=== PATIENT | male | born 1940 | race Caucasian/White ===

== ENCOUNTER → 2020-04-07 09:15 | Outpatient (BNVA) | payer MEDICARE, SELFPAY | PROVIDERS: PCP Internal Medicine; Referring Provider Internal Medicine; Visit Provider Urology | DX: N40.1 Benign prostatic hyperplasia with lower urinary tract symptoms (principal); N13.8 Other obstructive and reflux uropathy; N52.01 Erectile dysfunction due to arterial insufficiency | CPT/HCPCS: 99212 ==

== ENCOUNTER → 2020-05-26 13:28 | Outpatient (BNVA) | payer MEDICARE, SELFPAY | PROVIDERS: PCP Internal Medicine; Visit Provider Urology | DX: N48.5 Ulcer of penis (principal) | CPT/HCPCS: 99212 ==

== ENCOUNTER → 2020-06-23 08:33 | Outpatient (BNVA) | payer MEDICARE, SELFPAY | PROVIDERS: PCP Internal Medicine; Visit Provider Urology | DX: N48.5 Ulcer of penis (principal) | CPT/HCPCS: 99212 ==

== ENCOUNTER 2020-06-23 09:44 | Outpatient (REF) | payer MEDICARE, SELFPAY | END 2020-06-23 09:45 | disposition home or self-care (01) | LOC: HO.LAB 09:44 | PROVIDERS: PCP Internal Medicine; Visit Provider Internal Medicine | DX: Z20.822 Contact with and (suspected) exposure to COVID-19 (principal) | CPT/HCPCS: 36415; C9803; U0003 ==

== ENCOUNTER 2021-01-06 10:45 | Outpatient (REF) | payer MEDICARE, SELFPAY ==
[2021-01-06 12:15] LABS: PSA,Total (Free>4and<10) 3.04 ng/mL (0.00-4.00)
== END 2021-01-06 10:46 | disposition home or self-care (01) ==
LOC: HO.LAB 10:45
PROVIDERS: PCP Internal Medicine; Visit Provider Urology
DX: Z12.5 Encounter for screening for malignant neoplasm of prostate (principal); N13.8 Other obstructive and reflux uropathy; N40.1 Benign prostatic hyperplasia with lower urinary tract symptoms
CPT/HCPCS: 36415; 84153

== ENCOUNTER → 2021-04-08 09:32 | Outpatient (BNVA) | payer MEDICARE, SELFPAY | PROVIDERS: PCP Internal Medicine; Visit Provider Urology | DX: N52.01 Erectile dysfunction due to arterial insufficiency (principal); N40.1 Benign prostatic hyperplasia with lower urinary tract symptoms; N13.8 Other obstructive and reflux uropathy | CPT/HCPCS: 99212 ==

== ENCOUNTER 2022-04-04 16:00 | Outpatient (REF) | payer MEDICARE, SELFPAY ==
[2022-04-04 18:06] LABS: Prostate Specific Antigen 3.19 ng/mL (<0.05-4.0)
== END 2022-04-04 16:01 | disposition home or self-care (01) ==
LOC: HO.LAB 16:00
PROVIDERS: PCP Internal Medicine; Visit Provider Urology
DX: Z12.5 Encounter for screening for malignant neoplasm of prostate (principal); N40.1 Benign prostatic hyperplasia with lower urinary tract symptoms; N13.8 Other obstructive and reflux uropathy
CPT/HCPCS: 36415; 84153

== ENCOUNTER → 2022-04-14 08:38 | Outpatient (BNVA) | payer MEDICARE, SELFPAY | PROVIDERS: PCP Internal Medicine; Visit Provider Urology | DX: N40.1 Benign prostatic hyperplasia with lower urinary tract symptoms (principal); N13.8 Other obstructive and reflux uropathy; N52.01 Erectile dysfunction due to arterial insufficiency | CPT/HCPCS: 99212 ==

== ENCOUNTER 2023-04-04 07:46 | Outpatient (REF) | payer MEDICARE, SELFPAY | END 2023-04-04 07:47 | disposition home or self-care (01) | LOC: HO.LAB 07:46 | PROVIDERS: PCP Internal Medicine; Visit Provider Urology | DX: Z12.5 Encounter for screening for malignant neoplasm of prostate (principal); N40.1 Benign prostatic hyperplasia with lower urinary tract symptoms; N13.8 Other obstructive and reflux uropathy | CPT/HCPCS: 36415; 84153 ==

== ENCOUNTER 2023-04-13 08:35 | Outpatient (AMB) | payer MEDICARE, SELFPAY ==
--- NOTE | 2023-04-13 08:37 | MHC.OFFVIS ---
Intake Intake Visit Reasons: 1YR PSA(set) Intake Note: Patient is Present for Follow Up Urology Medication: Sildenafil, Tadalafil Antibiotic Allergies: Erythromycin Blood Thinners: None Pharmacy: [facility] PVR: 282ml Allergies erythromycin base [ERYTHROMYCIN BASE] Allergy (Severe, Verified 04/13/23 08:40) NAUSEA codeine Allergy (Unknown, Verified 04/13/23 08:40) vomitting trimethobenzamide [From TIGAN] Allergy (Unknown, Verified 04/13/23 08:40) UNKNOWN Erythromycin Allergy (Mild, Uncoded 04/13/23 08:40) Unknown HPI HPI Comments History of Present Illness Details Gurmeet is a pleasant male. He is seen for the following urologic conditions - lower urinary tract symptoms - penile lesion - erectile dysfunction PSA rise to 4.1 Repeat in 4 months Lower Urinary Tract Symptoms: Continuing yearly follow-up Right renal cyst small Emptying bladder Does have occasional urge frequency Discussed going back on Flomax for at this stage would like to hold Regarding erectile dysfunction just received generic sildenafil Discussed possible generic tadalafil since has prostate relaxation component Current treatment includes medication - nothing. Prior treatments include procedure, TURP 11/23 - in office - US 01/24 with mild left renal cortex thinning. 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 Prostate Symptom Score Mild (0-8), Bother 2. Symptoms include - mild urge frequency Results from testing include cystoscopy Enlarged lateral lobes transrectal ultrasound Yes prostate size 30 Prior Prostate Score moderate. PSA 2012 3.6, 11/23 1.4, 08/25 3.2 09/27 1.5 PVR 160, 03/29 PVR 130, 12/29 3.0, 04/01 3.2, 04/02 4.1 Prostate volume 30-50gm. Treatment plan check 12m PVR, and PSA Review of Systems Const Denies chills and Denies fever(s) Card Reports no additional complaints and Denies syncope Resp Denies cough GI Denies abdominal pain and Denies heartburn Reports as per HPI and Denies change in libido Neuro Denies syncope Psych Denies change in libido Endo Denies change in libido Physical Exam Const General: cooperative, healthy appearing, comfortable and no acute distress Orientation/consciousness: patient oriented x3 HEENT Face and sinus: Yes normal facial exam Mouth: moist mucous membranes Neck Neck: Yes normal visual inspection, Yes full ROM and Yes trachea midline Chest Chest palpation & inspection: normal inspection of the chest Resp Effort & Inspection: normal respiratory effort, able to speak in complete sentences and no respiratory distress GI Inspection: Yes normal to inspection Back/Spine/Pelvis Cervical Spine: normal cervical lordosis Thoracic/Lumbar Spine: thoracic and lumbar spine normal to inspection Skin General skin exam: no rashes or lesions noted Neuro General: patient oriented x3, gait normal, tone normal and moves all extremities Extrem General: Yes normal to inspection and Yes capillary refill normal Office Procedures Post Void Residual Post Residual Void Post Void Residual (PVR): 282 [id number] Void Residual by ultrasound Results AMB Urinalysis, Automated UA Leukoctes 0 Valencia/uL Last Edit by LENA Bush on 04/13/23 08:45 UA Nitrite Negative Last Edit by Yissel Wade [facility] on 04/13/23 08:45 UA Urobilinogen 0.2 mg/dL Last Edit by Yissel Wade [facility] on 04/13/23 08:45 UA Protein 15 mg/dL Last Edit by Yissel Wade [facility] on 04/13/23 08:45 UA pH 5.5 Last Edit by Yissel Wade [facility] on 04/13/23 08:45 UA Blood 0 Gabriel/uL Last Edit by Yissel Wade [facility] on 04/13/23 08:45 UA Specific [place] 1.030 Last Edit by Yissel Wade [facility] on 04/13/23 08:45 UA Ketone Negative Last Edit by LENA Bush on 04/13/23 08:45 UA Bilirubin 0 mg/dL Last Edit by Yissel Wade [facility] on 04/13/23 08:45 UA Glucose 0 mg/dL Last Edit by Yissel Wade [facility] on 04/13/23 08:45 Results Reviewed Results Reviewed: Laboratory Last Values Urine pH (Auto) 5.5 04/13/23 08:40 Specific [place] (Auto) 1.030 04/13/23 08:40 Urine Protein (Auto) 15 mg/dL 04/13/23 08:40 Glucose (UA)(Auto) 0 mg/dL 04/13/23 08:40 Urine Ketones (Auto) Negative 04/13/23 08:40 Urine Blood (Auto) 0 Gabriel/uL 04/13/23 08:40 Urine Nitrite (Auto) Negative 04/13/23 08:40 Urine Bilirubin (Auto) 0 mg/dL 04/13/23 08:40 Urine Urobilinogen (Auto) 0.2 mg/dL 04/13/23 08:40 Leukocyte Esterase (Auto) 0 Valencia/uL 04/13/23 08:40 Assessment & Plan Assessment & Plan (1) Elevated PSA: Code(s): R97.20 - Elevated prostate specific antigen [PSA] Plan Four month follow-up PSA Orders: Orders AMB Urinalysis Automated Today Z13.9 - Encounter for screening, unspecified AMB Post Void Residual by ultrasound Today N13.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, N40.1 - Benign prostatic hyperplasia with lower urinary tract symptoms Patient Instructions: Imaging studies, laboratory and physical exam results were discussed and reviewed in detail. No major barriers to patient understanding were identified. An opportunity to ask questions regarding the treatment plan was provided. All questions were answered. The patient expressed understanding and agreement with the above treatment plan. The patient is aware they should contact our office by phone for worsening of their current condition or the appearance of new urologic symptoms. Compliance is encouraged with any medications and followup testing that is ordered. It is a privilege to participate in the urologic care of your patient. If you have any questions or concerns regarding treatment for the above conditions, or other urologic issues, please do not hesitate to contact me. The office telephone contact is [phone]. This note is constructed using voice recognition software. While every effort has been made to ensure accuracy radiation safety officer errors may have been included. Yours sincerely, Dr Henry Pavon MD, STEFANO [facility] - Urology Providers of Expert, Compassionate Care for the Genitourinary System Coding Level of Care Code Est Pt Level 3 (84847) Diagnoses Elevated PSA R97.20 CPT Codes Post Residual Void - PVR CPT Code: 20134-Kbte Void Residual by ultrasound ([id number])
== END 2023-04-13 09:14 | disposition home or self-care (01) ==
PROVIDERS: Visit Provider Urology
DX: R97.20 Elevated prostate specific antigen [PSA] (principal); Z13.9 Encounter for screening, unspecified
CPT/HCPCS: 99213

== ENCOUNTER → 2023-04-13 08:35 | Outpatient (BNVA) | payer MEDICARE, SELFPAY | PROVIDERS: Visit Provider Urology | DX: R97.20 Elevated prostate specific antigen [PSA] (principal) | CPT/HCPCS: 51798; 81003; 99212 ==

== ENCOUNTER 2023-08-13 08:37 | Outpatient (REF) | payer MEDICARE, SELFPAY ==
[2023-08-13 10:26] LABS: Prostate Specific Antigen 5.42 ng/mL (<0.05-4.0)
== END 2023-08-13 08:38 | disposition home or self-care (01) ==
LOC: HO.LAB 08:37
PROVIDERS: PCP Internal Medicine; Visit Provider Urology
DX: Z12.5 Encounter for screening for malignant neoplasm of prostate (principal); R97.20 Elevated prostate specific antigen [PSA]
CPT/HCPCS: 36415; 84153

== ENCOUNTER 2023-08-16 08:16 | Outpatient (AMB) | payer MEDICARE, SELFPAY ==
--- NOTE | 2023-08-16 08:17 | A.OFFVIS_ITS ---
Intake Intake Visit Reasons: 4m/PSA(set)Confirmed Intake Note: Patient presents today for a telehealth follow-up Meds- Sildenafil, Tadalafil Allergies to Antibiotic- Erythromycin Blood Thinner- None Director Of Vendor Management Required: No Allergies erythromycin base [ERYTHROMYCIN BASE] Allergy (Severe, Verified 08/16/23 08:20) NAUSEA codeine Allergy (Unknown, Verified 08/16/23 08:20) vomitting trimethobenzamide [From TIGAN] Allergy (Unknown, Verified 08/16/23 08:20) UNKNOWN Erythromycin Allergy (Mild, Uncoded 08/16/23 08:20) Unknown Medication List - Last Reconciled 08/16/23 by Henry Pavon MD atorvastatin 20 mg PO DAILY carbamazepine 100 mg PO DAILY clotrimazole-betamethasone 1-0.05 % 1 appl topical BID 4 weeks doxycycline hyclate 100 mg PO BID 10 days finasteride 5 mg PO DAILY 90 days fluoxetine 20 mg PO DAILY loratadine 10 mg PO DAILY omeprazole 20 mg PO BID sildenafil 100 mg PO ONCE 30 days tadalafil 5 mg PO DAILY 90 days HPI HPI Comments History of Present Illness Details Gurmeet is a pleasant male. He is seen for the following urologic conditions - lower urinary tract symptoms - penile lesion - erectile dysfunction Telemedicine Evaluation 15 min Consultation Scrip-t Ibis Video attempted PSA slight rise to 5.4 Discussed options regarding elevating PSA. Has jumped over 2 points in last 18 months. Suggest trial of finasteride versus prostate biopsy. He has a lot going on with his son coming home who had a recent below-knee amputation and would rather try medications at this point. Six-month follow-up lab work Lower Urinary Tract Symptoms: Continuing yearly follow-up Right renal cyst small Emptying bladder Does have occasional urge frequency Discussed going back on Flomax for at this stage would like to hold Regarding erectile dysfunction just received generic sildenafil Discussed possible generic tadalafil since has prostate relaxation component Current treatment includes medication - nothing. Prior treatments include procedure, TURP 11/23 - in office - US 01/24 with mild left renal cortex thinning. 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 Prostate Symptom Score Mild (0-8), Bother 2. Symptoms include - mild urge frequency Results from testing include cystoscopy Enlarged lateral lobes transrectal ultrasound Yes prostate size 30 Prior Prostate Score moderate. PSA 2012 3.6, 11/23 1.4, 08/25 3.2, 09/27 1.5 PVR 160, 03/29 PVR 130, 12/29 3.0, 04/01 3.2, 04/02 4.1, 08/04 5.4 Review of Systems Const All systems reviewed & are unremarkable except as noted in HPI and below Reports no additional complaints Resp Reports no additional complaints GI Reports no additional complaints Reports as per HPI Musc Reports no additional complaints Physical Exam Telemedicine evaluation Appropriate responses Regular breathing rate and rhythm HEENT Head: Yes normal to inspection Ears: hearing grossly normal bilaterally Eyes General: appearance normal, both eyes and all related structures Neck Neck: Yes normal visual inspection Chest Chest palpation & inspection: normal inspection of the chest Resp Effort & Inspection: normal respiratory effort and able to speak in complete sentences Assessment & Plan Assessment & Plan (1) Elevated PSA: Code(s): R97.20 - Elevated prostate specific antigen [PSA] (2) BPH w urinary obs/LUTS: Code(s): N40.1 - Benign prostatic hyperplasia with lower urinary tract symptoms; N13.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 Plan Six-month follow-up Start finasteride Orders: Orders Prostate Specific Antigen 08/13/23 R97.20 - Elevated prostate specific antigen [PSA] PSA,Total (Free>4and<10) 6 Months R97.20 - Elevated prostate specific antigen [ PSA] Medications: New finasteride 5 mg PO DAILY 90 days 90 tabs 1RF N13.8 - Other obstructive and re flux uropathy, N40.1 - Benign prostatic hyperplasia with lower urinary tract symptoms, R33.9 - Retention of urine, unspecified, R97.20 - Elevated prostate specific antigen [PSA] Patient Instructions: Imaging studies, laboratory and physical exam results were discussed and reviewed in detail. No major barriers to patient understanding were identified. An opportunity to ask questions regarding the treatment plan was provided. All questions were answered. The patient expressed understanding and agreement with the above treatment plan. The patient is aware they should contact our office by phone for worsening of their current condition or the appearance of new urologic symptoms. Compliance is encouraged with any medications and followup testing that is ordered. It is a privilege to participate in the urologic care of your patient. If you have any questions or concerns regarding treatment for the above conditions, or other urologic issues, please do not hesitate to contact me. The office telephone contact is [phone]. This note is constructed using voice recognition software. While every effort has been made to ensure accuracy yarn examiner skeins errors may have been included. Yours sincerely, Dr Henry Pavon MD, [facility]EF[facility] - Urology Providers of Expert, Compassionate Care for the Genitourinary System Telehealth Telehealth Location of provider rendering services: practice address Location of patient: address on file Patient Identification confirmed using: Name, : Yes Telehealth method: video Patient verbally consented to treatment: Yes Patient verbally consented to billing insurance company: Yes Patient informed of any privacy concerns related to visit: Yes Coding Level of Care Code Tele Est Pt Level 4 (81066) Diagnoses Elevated PSA R97.20 BPH w urinary obs/LUTS N40.1; N13.8
== END 2023-08-16 09:27 | disposition home or self-care (01) ==
LOC: HO.HUSH 08:17
PROVIDERS: PCP Internal Medicine; Visit Provider Urology
DX: R97.20 Elevated prostate specific antigen [PSA] (principal); N40.1 Benign prostatic hyperplasia with lower urinary tract symptoms; N13.8 Other obstructive and reflux uropathy
CPT/HCPCS: 99214

== ENCOUNTER → 2023-08-16 08:16 | Outpatient (BNVA) | payer MEDICARE, SELFPAY | PROVIDERS: PCP Internal Medicine; Visit Provider Urology ==

== ENCOUNTER 2024-02-18 11:09 | Outpatient (REF) | payer MEDICARE, SELFPAY ==
[2024-02-18 12:52] LABS: PSA,Total (Free>4and<10) 3.43 ng/mL (0.00-4.00)
== END 2024-02-18 11:10 | disposition home or self-care (01) ==
LOC: HO.LAB 11:09
PROVIDERS: PCP Internal Medicine; Visit Provider Urology
DX: R97.20 Elevated prostate specific antigen [PSA] (principal); Z12.5 Encounter for screening for malignant neoplasm of prostate
CPT/HCPCS: 36415; 84153

== ENCOUNTER 2024-04-02 08:58 | Outpatient (AMB) | payer MEDICARE, SELFPAY ==
--- NOTE | 2024-04-02 09:02 | MHC.OFFVIS ---
Intake Visit Reasons: PSA Results Intake Note: Patient is present for PSA/PVR Follow up Urology Med: Sildenafil, Tadalafil, Finasteride Antibiotic Allergy: Erythromycin base Blood Thinner: None Last PVR: 282ML(2022) Todays PVR: 20ml Radio Frequency Engineer Required: No Accompanied by: Self / Same As Patient Allergies erythromycin base [ERYTHROMYCIN BASE] Allergy (Severe, Verified 04/02/24 09:04) NAUSEA codeine Allergy (Unknown, Verified 04/02/24 09:04) vomitting trimethobenzamide [From TIGAN] Allergy (Unknown, Verified 04/02/24 09:04) UNKNOWN Erythromycin Allergy (Mild, Uncoded 04/02/24 09:04) Unknown HPI Comments Details: Gurmeet is a pleasant male. He is seen for the following urologic conditions - lower urinary tract symptoms - penile lesion - erectile dysfunction Appropriate PSA fall from 5.4 to 3.4 starting finasteride Cut back medication to Sunday, Sunday, Sunday Six-month follow-up repeat PSA Restart Cialis Lower Urinary Tract Symptoms: Continuing yearly follow-up Right renal cyst small Emptying bladder Does have occasional urge frequency Discussed going back on Flomax for at this stage would like to hold Regarding erectile dysfunction just received generic sildenafil Discussed possible generic tadalafil since has prostate relaxation component Current treatment includes medication - nothing. Prior treatments include procedure, TURP 11/23 - in office - US 01/24 with mild left renal cortex thinning. 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 Prostate Symptom Score Mild (0-8), Bother 2. Symptoms include - mild urge frequency Results from testing include cystoscopy Enlarged lateral lobes transrectal ultrasound Yes prostate size 30 Prior Prostate Score moderate. PSA 2012 3.6, 11/23 1.4, 08/25 3.2, 09/27 1.5 PVR 160, 03/29 PVR 130, 12/29 3.0, 04/01 3.2, 04/02 4.1, 08/04 5.4, 03/04 3.4 Review of Systems Const Denies chills and Denies fever(s) Card Reports no additional complaints and Denies syncope Resp Denies cough GI Denies abdominal pain and Denies heartburn Reports as per HPI and Denies change in libido Neuro Denies syncope Psych Denies change in libido Endo Denies change in libido Physical Exam Const General: cooperative, healthy appearing, comfortable and no acute distress Orientation/consciousness: patient oriented x3 HEENT Face and sinus: Yes normal facial exam Mouth: moist mucous membranes Neck Neck: Yes normal visual inspection, Yes full ROM and Yes trachea midline Chest Chest palpation & inspection: normal inspection of the chest Resp Effort & Inspection: normal respiratory effort, able to speak in complete sentences and no respiratory distress GI Inspection: Yes normal to inspection Back/Spine/Pelvis Cervical Spine: normal cervical lordosis Thoracic/Lumbar Spine: thoracic and lumbar spine normal to inspection Skin General skin exam: no rashes or lesions noted Neuro General: patient oriented x3, gait normal, tone normal and moves all extremities Extrem General: Yes normal to inspection and Yes capillary refill normal Office Procedures Post Void Residual Post Residual Void Post Void Residual (PVR): 20 [id number] Void Residual by ultrasound Assessment & Plan Assessment & Plan (1) Elevated PSA: Code(s): R97.20 - Elevated prostate specific antigen [PSA] Category: Medical (2) Erectile dysfunction due to arterial insufficiency: Code(s): N52.01 - Erectile dysfunction due to arterial insufficiency Category: Medical (3) BPH w urinary obs/LUTS: Code(s): N40.1 - Benign prostatic hyperplasia with lower urinary tract symptoms; N13.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 No major barriers to patient understanding were identified. An opportunity to ask questions regarding the treatment plan was provided. All questions were answered. The patient expressed understanding and agreement with the above treatment plan. The patient is aware they should contact our office by phone for worsening of their current condition or the appearance of new urologic symptoms. Compliance is encouraged with any medications and followup testing that is ordered. It is a privilege to participate in the urologic care of your patient. If you have any questions or concerns regarding treatment for the above conditions, or other urologic issues, please do not hesitate to contact me. The office telephone contact is [phone]. This note is constructed using voice recognition software. While every effort has been made to ensure accuracy bath mixer errors may have been included. Yours sincerely, Dr Henry Pavon MD, STEFAN[facility] - Urology Providers of Expert, Compassionate Care for the Genitourinary System Coding Level of Care Code Est Pt Level 4 (94762) Diagnoses Elevated PSA R97.20 Erectile dysfunction due to arterial insufficiency N52.01 BPH w urinary obs/LUTS N40.1; N13.8 CPT Codes Post Residual Void - PVR CPT Code: 09726-Mlvr Void Residual by ultrasound ([id number])
== END 2024-04-02 09:17 | disposition home or self-care (01) ==
PROVIDERS: PCP Internal Medicine; Visit Provider Urology
DX: R97.20 Elevated prostate specific antigen [PSA] (principal); N52.01 Erectile dysfunction due to arterial insufficiency; N40.1 Benign prostatic hyperplasia with lower urinary tract symptoms; N13.8 Other obstructive and reflux uropathy
CPT/HCPCS: 99214

== ENCOUNTER → 2024-04-02 08:58 | Outpatient (BNVA) | payer MEDICARE, SELFPAY | PROVIDERS: PCP Internal Medicine; Visit Provider Urology | DX: N40.1 Benign prostatic hyperplasia with lower urinary tract symptoms (principal); N13.8 Other obstructive and reflux uropathy; N52.01 Erectile dysfunction due to arterial insufficiency; R97.20 Elevated prostate specific antigen [PSA] | CPT/HCPCS: 51798; 99212 ==

== ENCOUNTER 2024-09-08 11:42 | Outpatient (REF) | payer MEDICARE, SELFPAY ==
[2024-09-08 13:23] LABS: Prostate Specific Antigen 4.66 ng/mL (<0.05-4.0)
== END 2024-09-08 11:43 | disposition home or self-care (01) ==
LOC: HO.LAB 11:42
PROVIDERS: PCP Internal Medicine; Visit Provider Urology
DX: R97.20 Elevated prostate specific antigen [PSA] (principal); Z12.5 Encounter for screening for malignant neoplasm of prostate
CPT/HCPCS: 36415; 84153

== ENCOUNTER 2024-10-01 09:24 | Outpatient (AMB) | payer MEDICARE, SELFPAY ==
--- NOTE | 2024-10-01 09:24 | A.OFFVIS_ITS ---
Intake Visit Reasons: 6m/PSA Intake Note: Patient is present for 6M/PSA Urology Medication:FINASTERIDE,SILDENAFIL Antibiotic Allergy:ERYTHROMYCIN Blood Thinner:NONE Medical Office Assistant Required: No Allergies erythromycin base [ERYTHROMYCIN BASE] Allergy (Severe, Verified 10/01/24 09:25) NAUSEA codeine Allergy (Unknown, Verified 10/01/24 09:25) vomitting trimethobenzamide [From TIGAN] Allergy (Unknown, Verified 10/01/24 09:25) UNKNOWN Erythromycin Allergy (Mild, Uncoded 10/01/24 09:25) Unknown HPI Comments Details: Gurmeet is a pleasant male. He is seen for the following urologic conditions - lower urinary tract symptoms - penile lesion - erectile dysfunction Telemedicine Evaluation 15 min Consultation Keelr Ibis Video Six-month follow-up PSA Finasteride Sunday, Sunday, Sunday Appropriate PSA fall from 5.4 to 3.4 starting finasteride With readjustment slight rise from 3.4 to 4.6 Repeat in six-month Has been on Cialis for ED plus lower urinary tract symptoms Lower Urinary Tract Symptoms: Continuing yearly follow-up Right renal cyst small Emptying bladder Does have occasional urge frequency Discussed going back on Flomax for at this stage would like to hold Regarding erectile dysfunction just received generic sildenafil Discussed possible generic tadalafil since has prostate relaxation component Current treatment includes medication - nothing. Prior treatments include procedure, TURP 11/23 - in office - US 01/24 with mild left renal cortex thinning. 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 Prostate Symptom Score Mild (0-8), Bother 2. Symptoms include - mild urge frequency Results from testing include cystoscopy Enlarged lateral lobes transrectal ultrasound Yes prostate size 30 Prior Prostate Score moderate. PSA 2012 3.6, 11/23 1.4, 08/25 3.2, 09/27 1.5 PVR 160, 03/29 PVR 130, 12/29 3.0, 04/01 3.2, 04/02 4.1, 08/04 5.4, 03/04 3.4, 10/03 4.6 Review of Systems Const All systems reviewed & are unremarkable except as noted in HPI and below Reports no additional complaints Resp Reports no additional complaints GI Reports no additional complaints Reports as per HPI Musc Reports no additional complaints Physical Exam Telemedicine evaluation Appropriate responses Regular breathing rate and rhythm HEENT Head: Yes normal to inspection Ears: hearing grossly normal bilaterally Eyes General: appearance normal, both eyes and all related structures Neck Neck: Yes normal visual inspection Chest Chest palpation & inspection: normal inspection of the chest Resp Effort & Inspection: normal respiratory effort and able to speak in complete sentences Telehealth Telehealth Telehealth Platform: [employer] Location of provider rendering services: practice address Location of patient: address on file Patient Identification confirmed using: Name, : Yes Telehealth method: video Patient verbally consented to treatment: Yes Patient verbally consented to billing insurance company: Yes Patient informed of any privacy concerns related to visit: Yes Minutes spent on Phone/Video with Pt.: 15 Assessment & Plan Assessment & Plan (1) BPH w urinary obs/LUTS: Code(s): N40.1 - Benign prostatic hyperplasia with lower urinary tract symptoms; N13.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 Category: Medical (2) Elevated PSA: Code(s): R97.20 - Elevated prostate specific antigen [PSA] Category: Medical (3) Erectile dysfunction due to arterial insufficiency: Code(s): N52.01 - Erectile dysfunction due to arterial insufficiency Category: Medical Plan Six-month follow-up PSA office Orders: Orders Prostate Specific Antigen 6 Months R97.20 - Elevated prostate specific antigen [PSA] Medications: Refilled tadalafil Daily medication - BIN [id number] [facility] DR33 5 mg PO DAILY 90 days 90 tabs 1RF sexual activity N52.01 - Erectile dysfunction due to arterial insufficiency Patient Instructions: This note is constructed using voice recognition software. While every effort has been made to ensure accuracy agricultural plow operator errors may have been included. Imaging studies, laboratory and physical exam results were discussed and reviewed in detail. No major barriers to patient understanding were identified. An opportunity to ask questions regarding the treatment plan was provided. All questions were answered. The patient expressed understanding and agreement with the above treatment plan. The patient is aware they should contact our office by phone for worsening of their current condition or the appearance of new urologic symptoms. Compliance is encouraged with any medications and followup testing that is ordered. It is a privilege to participate in the urologic care of your patient. If you have any questions or concerns regarding treatment for the above conditions, or other urologic issues, please do not hesitate to contact me. The office telephone contact is [phone]. Sincerely, Dr Henry Pavon MD, STEFANO [facility] - Urology Compassionate Specialist Care for the Genitourinary System Coding Level of Care Code Tele Est Pt Level 3 (29452) Complex EM visit Add On G2211 Diagnoses BPH w urinary obs/LUTS N40.1; N13.8 Elevated PSA R97.20 Erectile dysfunction due to arterial insufficiency N52.01
== END 2024-10-01 09:39 | disposition home or self-care (01) ==
LOC: HO.HUSH 09:24
PROVIDERS: PCP Internal Medicine; Visit Provider Urology
DX: N40.1 Benign prostatic hyperplasia with lower urinary tract symptoms (principal); N13.8 Other obstructive and reflux uropathy; R97.20 Elevated prostate specific antigen [PSA]; N52.01 Erectile dysfunction due to arterial insufficiency
CPT/HCPCS: 99213; G2211

== ENCOUNTER → 2024-10-01 09:24 | Outpatient (BNVA) | payer MEDICARE, SELFPAY | PROVIDERS: PCP Internal Medicine; Visit Provider Urology ==

== ENCOUNTER 2025-03-19 10:25 | Outpatient (REF) | payer MEDICARE, SELFPAY ==
[2025-03-19 14:23] LABS: Prostate Specific Antigen 6.23 ng/mL (<0.05-4.0)
== END 2025-03-19 10:26 | disposition home or self-care (01) ==
LOC: HO.10HDL 10:25
PROVIDERS: Visit Provider Urology
DX: Z12.5 Encounter for screening for malignant neoplasm of prostate (principal); R97.20 Elevated prostate specific antigen [PSA]
CPT/HCPCS: 36415; 84153

== ENCOUNTER 2025-04-02 08:49 | Outpatient (AMB) | payer MEDICARE, SELFPAY ==
--- NOTE | 2025-04-02 08:47 | MHC.OFFVIS ---
Intake Visit Reasons: 6m/PSA Intake Note: Patient is present for 6M/PSA Urology Medication:FINASTERIDE,SILDENAFIL,TADALAFIL Antibiotic Allergy:ERYTHROMYCIN Blood Thinner:NONE Labs ne 03/19/25 PSA 6.23 PVR:183 mls Vice Chair Required: No Accompanied by: Self / Same As Patient Allergies erythromycin base (ERYTHROMYCIN BASE) Allergy (Severe, Verified 04/02/25 08:51) NAUSEA codeine Allergy (Unknown, Verified 04/02/25 08:51) vomitting trimethobenzamide (From TIGAN) Allergy (Unknown, Verified 04/02/25 08:51) UNKNOWN Erythromycin Allergy (Mild, Uncoded 10/01/24 09:25) Unknown HPI Comments Details: Gurmeet is a pleasant male. He is seen for the following urologic conditions - lower urinary tract symptoms - penile lesion - erectile dysfunction Six-month follow-up PSA Finasteride Sunday, Sunday, Sunday Appropriate PSA fall from 5.4 to 3.4 starting finasteride With readjustment slight rise from 3.4 to 4.6 Slight rise in PSA 04/04 6.2 He will go back to daily finasteride Discussed potential MRI Has been on [employer] for ED plus lower urinary tract symptoms Lower Urinary Tract Symptoms: Continuing yearly follow-up Right renal cyst small Emptying bladder Does have occasional urge frequency Discussed going back on Flomax for at this stage would like to hold Regarding erectile dysfunction just received generic sildenafil Discussed possible generic tadalafil since has prostate relaxation component Current treatment includes medication - nothing. Prior treatments include procedure, TURP 11/23 - in office - US 01/24 with mild left renal cortex thinning. 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 Prostate Symptom Score Mild (0-8), Bother 2. Symptoms include - mild urge frequency Results from testing include cystoscopy Enlarged lateral lobes transrectal ultrasound Yes prostate size 30 Prior Prostate Score moderate. PSA 2012 3.6, 11/23 1.4, 08/25 3.2, 09/27 1.5 PVR 160, 03/29 PVR 130, 12/29 3.0, 04/01 3.2, 04/02 4.1, 08/04 5.4, 03/04 3.4, 10/03 4.6 Review of Systems Const Denies chills and Denies fever(s) Card Reports no additional complaints and Denies syncope Resp Denies cough GI Denies abdominal pain and Denies heartburn Reports as per HPI and Denies change in libido Neuro Denies syncope Psych Denies change in libido Endo Denies change in libido Physical Exam Const General: cooperative, healthy appearing, comfortable and no acute distress Orientation/consciousness: patient oriented x3 HEENT Face and sinus: Yes normal facial exam Mouth: moist mucous membranes Neck Neck: Yes normal visual inspection, Yes full ROM and Yes trachea midline Chest Chest palpation & inspection: normal inspection of the chest Resp Effort & Inspection: normal respiratory effort, able to speak in complete sentences and no respiratory distress GI Inspection: Yes normal to inspection Back/Spine/Pelvis Cervical Spine: normal cervical lordosis Thoracic/Lumbar Spine: thoracic and lumbar spine normal to inspection Skin General skin exam: no rashes or lesions noted Neuro General: patient oriented x3, gait normal, tone normal and moves all extremities Extrem General: Yes normal to inspection and Yes capillary refill normal Office Procedures Post Void Residual Post Residual Void Post Void Residual (PVR): 183 [id number] Void Residual by ultrasound Results AMB Urinalysis, Automated UA Leukoctes 0 Valencia/uL Last Edit by Pamela Govea [facility] on 04/02/25 08:53 UA Nitrite Negative Last Edit by Pamela Govea [facility] on 04/02/25 08:53 UA Urobilinogen 0.2 mg/dL Last Edit by Pamela Govea [facility] on 04/02/25 08:53 UA Protein 0 mg/dL Last Edit by Pamela Govea [facility] on 04/02/25 08:53 UA pH 6.0 Last Edit by Pamela Govea [facility] on 04/02/25 08:53 UA Blood 0 Gabriel/uL Last Edit by Pamela Govea [facility] on 04/02/25 08:53 UA Specific [place] 1.005 Last Edit by Pamela Govea [facility] on 04/02/25 08:53 UA Ketone Negative Last Edit by Pamela Govea [facility] on 04/02/25 08:53 UA Bilirubin 0 mg/dL Last Edit by Pamela Govea [facility] on 04/02/25 08:53 UA Glucose 0 mg/dL Last Edit by Pamela Govea [facility] on 04/02/25 08:53 AMB Urinalysis, Automated UA Leukoctes 0 Valencia/uL Last Edit by Pamela Colon, [facility] on 04/02/25 09:04 UA Nitrite Negative Last Edit by Pamela Colon, [facility] on 04/02/25 09:04 UA Urobilinogen 0.2 mg/dL Last Edit by Pamela Colon, [facility] on 04/02/25 09:04 UA Protein 15 mg/dL Last Edit by Pamela Colon, [facility] on 04/02/25 09:04 UA pH 6.0 Last Edit by Pamela Colon, [facility] on 04/02/25 09:04 UA Blood 0 Gabriel/uL Last Edit by Pamela Colon, [facility] on 04/02/25 09:04 UA Specific [place] 1.025 Last Edit by Pamela Colon, [facility] on 04/02/25 09:04 UA Ketone Negative Last Edit by Pamela Colon, [facility] on 04/02/25 09:04 UA Bilirubin 0 mg/dL Last Edit by Pamela Colon, [facility] on 04/02/25 09:04 UA Glucose 0 mg/dL Last Edit by Pamela Colon, [facility] on 04/02/25 09:04 Results Reviewed Results Reviewed: Laboratory Last Values Urine pH (Auto) 6.0 04/02/25 09:03 Specific [place] (Auto) 1.025 04/02/25 09:03 Urine Protein (Auto) 15 mg/dL 04/02/25 09:03 Glucose (UA)(Auto) 0 mg/dL 04/02/25 09:03 Urine Ketones (Auto) Negative 04/02/25 09:03 Urine Blood (Auto) 0 Gabriel/uL 04/02/25 09:03 Urine Nitrite (Auto) Negative 04/02/25 09:03 Urine Bilirubin (Auto) 0 mg/dL 04/02/25 09:03 Urine Urobilinogen (Auto) 0.2 mg/dL 04/02/25 09:03 Leukocyte Esterase (Auto) 0 Valencia/uL 04/02/25 09:03 Assessment & Plan Assessment & Plan (1) Elevated PSA: Code(s): R97.20 - Elevated prostate specific antigen [PSA] Category: Medical (2) BPH w urinary obs/LUTS: Code(s): N40.1 - Benign prostatic hyperplasia with lower urinary tract symptoms; N13.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 Category: Medical (3) Erectile dysfunction due to arterial insufficiency: Code(s): N52.01 - Erectile dysfunction due to arterial insufficiency Category: Medical Plan Six-month follow-up PSA Orders: Orders PSA,Total (Free>4and<10) 6 Months R97.20 - Elevated prostate specific antigen [PSA] Medications: Refilled finasteride 5 mg PO DAILY 90 tabs 1RF 90 days N13.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, N40.1 - Benign prostatic hyperplasia with lower urinary tract symptoms tadalafil Daily medication - BIN [id number] [facility] Group DR33 5 mg PO DAILY 90 tabs 1RF sexual activity 90 days N52.01 - Erectile dysfunction due to arterial insufficiency Patient Instructions: This note is constructed using voice recognition software. While every effort has been made to ensure accuracy drawing supervisor errors may have been included. Imaging studies, laboratory and physical exam results were discussed and reviewed in detail. No major barriers to patient understanding were identified. An opportunity to ask questions regarding the treatment plan was provided. All questions were answered. The patient expressed understanding and agreement with the above treatment plan. The patient is aware they should contact our office by phone for worsening of their current condition or the appearance of new urologic symptoms. Compliance is encouraged with any medications and followup testing that is ordered. It is a privilege to participate in the urologic care of your patient. If you have any questions or concerns regarding treatment for the above conditions, or other urologic issues, please do not hesitate to contact me. The office telephone contact is [phone]. Sincerely, Dr Henry Pavon MD, [facility] - Urology Compassionate Specialist Care for the Genitourinary System Coding Level of Care Code Est Pt Level 3 (43443) Complex EM visit Add On G2211 Diagnoses Elevated PSA R97.20 BPH w urinary obs/LUTS N40.1; N13.8 Erectile dysfunction due to arterial insufficiency N52.01 CPT Codes Post Residual Void - PVR CPT Code: 26808-[id number] Void Residual by ultrasound ([id number])
--- OUTSIDE RECORDS SUMMARY | 2025-04-02 09:34 | XMS_ITS | Clinical Summary ---
Author Organization [facility] [address] [facility] Address [address] [place] [address] Phone Care Team Providers Care Web Content Executive Name Role Phone Florentino Tao NP Primary Care Provider [phone] Allergies Active Allergy Reactions Criticality Noted Date Comments Codeine 11/20/2024 Erythromycin 04/22/2013 Medications atorvastatin (LIPITOR) 20 mg tablet Take 1 tablet (20 mg total) by mouth 1 (one) time each day. Active carBAMazepine (TEGretol) 200 mg tablet Take 0.5 tablets (100 mg total) by mouth 1 (one) time each day. Active finasteride (PROSCAR) 5 mg tablet take 1 tab by mouth daily for 90 days 5 Active FLUoxetine (PROzac) 40 mg capsule Take 1 capsule (40 mg total) by mouth 1 (one) time each day. 5 Active fluticasone propionate (FLONASE) 50 mcg/actuation nasal spray SPRAY 2 SPRAYS INTO EACH NOSTRIL TWICE A DAY FOR 5 DAYS, THEN DAILY DIRECTED FOR 90 DAYS Active sildenafiL (VIAGRA) 100 mg tablet TAKE 1 TABLET ORALLY ONCE FOR SEXUAL ACTIVITY. ADMINISTER 60 MINUTES BEFORE INTENDED ACTIVITY 5 Active tadalafiL (CIALIS) 5 mg tablet TAKE 1 TABLET BY MOUTH FOR SEXUAL ACTIVITY 5 Active omeprazole (PriLOSEC) [address] capsule Take 1 capsule (20 mg total) by mouth 2 (two) times a day. Do not crush or chew. 180 each 3 5 11/21/19 26 Active Active Problems Problem Noted Date Diagnosed Date Gastroesophageal reflux dise ase with esophagitis without hemorrhage 11/20/2024 Assessment & Plan (11/20/2024 5:16 PM EDT): Stable with omperazole 20 mg daily. 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 Martinez ESOPHAGOGASTRODUODENOSCOPY 07/12/2022 - 08/08/2022 grade A esophagitis, no bleeding, lg HH, ? Short segment Barretts with acute inflammation, negative for metaplasia ESOPHAGOGASTRODUODENOSCOPY 06/11/2021 - 07/11/2021 Grade D reflux esophagitis without bleeding, medium size hiatal hernia, focal Meneses's mucosa negative for dysplasia Dr. Martinez ESOPHAGOGASTRODUODENOSCOPY 08/09/2021 - 09/08/2021 Grade B reflux esophagitis, intestinal metaplasia negative for dysplasia Dr. Martinez COLONOSCOPY 06/11/2021 - 07/11/2021 2 medium sized angioectasias with stigmata of recent bleeding in the cecum treated with bipolar cautery, left-sided diverticulosis Dr. Martinez Medical History Medical History Date Comments Allergic rhinitis 04/22/2013 DX:Allergic rh initis Hyperlipidemia 04/22/2013 DX:Hyperlipidemi a Vasovagal syncope 04/22/2013 DX:Vasovagal s yncope Seizure disorder (CMS/HCC V2 4, CMS/HCC V28) 04/22/2013 DX:Seizure disorder (HCC); COMMENT: Neurologist: Dr Salgado BPH (benign prostatic hyperplasia) 04/22/2013 DX:BPH (benign prostatic hyperplasia); COMMENT: Biopsy, Dr Lozada for urology Elevated PSA 04/22/2013 DX:Elevated PSA; COMMENT: PSA was 10 in , repeat with decreased 6 after antibiotics. Family History Medical History Relation Name Comments Other: Myasthenia Gravis Brother 1 Valencia kemia Heart attack Father Other: Diverticulitis Mother a ge 89 yr Other: COPD Sister 1 Relation Name Status Comments Brother 1 Brother 2 Alive younger Father Mother Sister 1 Sister 2 Alive older Social History Tobacco Use Types Packs/Day Years Used Date Smoking Tobacco: Never Smokeless Tobacco: Never Alcohol Use Standard Drinks/Week Comments No 0 (1 standard drink = 0.6 oz pur e alcohol) Sex and Gender Information Value Date Recorded Sex Assigned at Not on file Legal Sex Male 6:26 AM EST Gender Identity Not on file Sexual Orientation Not on file Obstetrics History Last Filed Vital Signs Vital Sign Reading Time Taken Comments Blood Pressure - - Pulse - - Temperature - - Respiratory Rate - - Oxygen Saturation - - Inhaled Oxygen Concentration - - Weight 82.1 kg (181 lb) 11/20/2024 11:09 AM EDT Height 170.2 cm (5' 7 ) 11/20/2024 11:09 AM EDT Body Mass Index 28.35 11/20/2024 11:09 AM EDT Plan of Treatment Upcoming Encounters Date Type Department Care Team (Late st Contact Info) Description 11/20/2025 8:00 AM EDT Office Visit Gastroenterology - [address] [facility] [address] [place] [id number] Vidya Sheehan PA [facility] [place] [address] Health Maintenance Due Date Last Done Comments DTaP,Tdap,and Td Vaccines (1 - Tdap) 1961 Zoster Vaccines (1 of 2) 1992 Pneumococcal Vaccine: 50+ Years (2 of 2 - PCV) 08/14/2013 08/14/2012 RSV Immunization Adult Patients (1 - 1-dose 75+ series) 2017 Depression Screening 06/11/2024 Cholesterol Screening (Lipid Panel) 11/05/2024 Falls Risk Assessment 11/05/2024 Medicare Annual Wellness Visit 11/05/2024 Social Influencers of Health Screening 11/05/2024 COVID-19 Vaccine (3 - 2024-2 6 season) 2025 05/09/2022, 03/08/2021 Influenza Vaccine (#1) 2025 , 07/12/2019 HIB Vaccines Aged Out No longer eligi ble based on patient's age to complete this topic HPV Vaccines Aged Out No longer eligi ble based on patient's age to complete this topic Hepatitis A Vaccines Aged Out No long er eligible based on patient's age to complete this topic Hepatitis B Vaccines Aged Out No long er eligible based on patient's age to complete this topic IPV Vaccines Aged Out No longer eligi ble based on patient's age to complete this topic MMR Vaccines Aged Out No longer eligi ble based on patient's age to complete this topic Meningococcal ACWY Vaccine Aged Out N o longer eligible based on patient's age to complete this topic Meningococcal B Vaccine Aged Out No l onger eligible based on patient's age to complete this topic RSV Immunization Patients Under 20 months Aged Out No longer eligible b ased on patient's age to complete this topic Varicella Vaccines Aged Out No longer eligible based on patient's age to complete this topic Insurance [facility] MEDICARE Care Teams Web Content Executive Relationship Specialty Start Date End Date Florentino Tao NP [facility] [address] [place] [address] [facility] - General 07/31/22
== END 2025-04-02 09:27 | disposition home or self-care (01) ==
LOC: HO.HUSH 08:52
PROVIDERS: PCP Internal Medicine; Visit Provider Urology
DX: R97.20 Elevated prostate specific antigen [PSA] (principal); N40.1 Benign prostatic hyperplasia with lower urinary tract symptoms; N13.8 Other obstructive and reflux uropathy; N52.01 Erectile dysfunction due to arterial insufficiency
CPT/HCPCS: 99213

== ENCOUNTER → 2025-04-02 08:49 | Outpatient (BNVA) | payer MEDICARE, SELFPAY | PROVIDERS: PCP Internal Medicine; Visit Provider Urology | DX: R97.20 Elevated prostate specific antigen [PSA] (principal); N40.1 Benign prostatic hyperplasia with lower urinary tract symptoms; N13.8 Other obstructive and reflux uropathy; N52.01 Erectile dysfunction due to arterial insufficiency | CPT/HCPCS: 51798; 99212 ==